=== PATIENT | male | born 1970 | race Caucasian/White ===

== ENCOUNTER 2017-11-08 09:01 | Outpatient (CLI) | payer BC | END 2017-11-08 09:02 | disposition home or self-care (01) | LOC: BICULT 09:01 | PROVIDERS: ATTEND Internal Medicine Gastroenterology | DX: K22.70 Barrett's esophagus without dysplasia (principal); K82.4 Cholesterolosis of gallbladder; K21.9 Gastro-esophageal reflux disease without esophagitis | CPT/HCPCS: 76705 ==